=== PATIENT | male | born 1975 | race Caucasian/White ===

== ENCOUNTER 2020-11-08 10:42 | Emergency (ER) | payer MEDICAID ==
[2020-11-08] MEDS ORDERED: Ketorolac 10 MG Tab PO ONE (10:43)
[2020-11-08] MEDS ORDERED: Ketorolac 30 MG/ML SDV IM ONE (11:10)
--- NOTE | 2020-11-08 11:11 | EDM.PDOC ---
ED HPI GENERAL MEDICAL PROBLEM - General Chief Complaint: General Stated Complaint: BROKEN RIB Time Seen by Provider: 11/08/20 10:45 Source of Information: Reports: Patient History Limitations: Reports: No Limitations - History of Present Illness INITIAL COMMENTS - FREE TEXT/NARRATIVE: States he slipped ad fell in bathtub on monday and hurt his side Was seen in the ER on in sandra: noted to have 3 ribs fracture on the right with displacement on CT scan hurts to take a deep breath no shortness of breath noted . Was given medication but ran out and now states pain is worse right side rib Pain Score (Numeric/FACES): 9 - Related Data Allergies Allergy/AdvReac Type Severity Reaction Status Date / Time No Known Allergies Allergy Verified 11/08/20 10:53 Home Meds: Home Meds Acetaminophen/HYDROcodone [[place] 325-5 MG] 1 tab PO Q6H PRN #10 tab 11/08/20 [Rx] Ketorolac [Toradol] 10 mg PO Q6H PRN #15 tab 11/08/20 [Rx] Lidocaine [Lidoderm] 1 each TP DAILY #30 adh..patch 11/08/20 [Rx] ED ROS GENERAL - Review of Systems Review Of Systems: Comprehensive ROS is negative, except as noted in HPI. ED EXAM, GENERAL - Physical Exam Exam: See Below Exam Limited By: No Limitations General Appearance: Alert, WD/WN Eye Exam: Bilateral Eye: EOMI Ears: Normal External Exam Nose: Normal Inspection Throat/Mouth: Normal Inspection Head: Atraumatic, Normocephalic Neck: Non-Tender Respiratory/Chest: Lungs Clear, Normal Breath Sounds, Other (localized tenderness in the area of the lower ribs on the right). No: Crackles, Rales, Accessory Muscle Use Cardiovascular: Regular Rate, Rhythm GI/Abdominal: Soft, Non-Tender Back Exam: Full Range of Motion. No: CVA Tenderness (R), CVA Tenderness (L) Extremities: Normal Range of Motion Neurological: Alert, Oriented, CN II-XII Intact Psychiatric: Normal Affect Skin Exam: Warm, Dry, Intact Course - Vital Signs Last Recorded V/S: Last Vital Signs Temp 36.2 C 11/08/20 10:42 Pulse 130 H 11/08/20 10:42 Resp 17 11/08/20 10:42 BP 150/77 H 11/08/20 10:42 Pulse Ox 94 L 11/08/20 10:42 - Orders/Labs/Meds Orders: Active Orders 24 hr Category Date Time Status Ribs 2V w Chest Rt [CR] Stat Exams 11/08/20 11:07 Taken Meds: Medications Discontinued Medications Generic Name Dose Route Start Last Admin Trade Name Freq PRN Reason Stop Dose Admin Ketorolac Tromethamine 60 mg 11/08/20 11:10 11/08/20 11:32 Ketorolac 30 Mg/Ml Sdv IM 11/08/20 11:11 60 mg ONETIME ONE Administration - Re-Assessments/Exams Free Text/Narrative Re-Assessment/Exam: 11/08/20 12:59 pt was given a dose of toradol Then sent for Xray Radiologist luiz to get prior CT scan to compare the Xray with NO new fracture of displacement noted Departure - Departure Time of Disposition: 13:15 Disposition: Home, Self-Care 01 Condition: Fair Clinical Impression: Multiple fractures of ribs of right side, Contusion of rib on right side, Acute traumatic injury of chest wall - Discharge Information *PRESCRIPTION DRUG MONITORING PROGRAM REVIEWED*: Not Applicable *COPY OF PRESCRIPTION DRUG MONITORING REPORT IN PATIENT JENNA: Not Applicable Prescriptions: Lidocaine [Lidoderm] 1 each TP DAILY #30 adh..patch Acetaminophen/HYDROcodone [[place] 325-5 MG] 1 tab PO Q6H PRN #10 tab PRN Reason: Pain (Severe 7-10) Ketorolac [Toradol] 10 mg PO Q6H PRN #15 tab PRN Reason: Pain (Severe 7-10) Instructions: Rib Fracture, [id number], Blunt Chest Trauma, Rib Contusion Forms: ED Department Discharge Sepsis Event Note (ED) - Evaluation Sepsis Screening Result: No Definite Risk - Focused Exam Vital Signs: Vital Signs Temp Pulse Resp BP Pulse Ox 11/08/20 10:42 36.2 C 130 H 17 150/77 H 94 L - My Orders Last 24 Hours: My Active Orders 11/08/20 11:07 Ribs 2V w Chest Rt [CR] Stat - Assessment/Plan Last 24 Hours: My Active Orders 11/08/20 11:07 Ribs 2V w Chest Rt [CR] Stat
[2020-11-08] MEDS ORDERED: Lidocaine 4% 1 each Patch TOP PRN (12:55)
== END 2020-11-08 13:20 | disposition home or self-care (01) ==
LOC: FB.ED 10:42
DX: S22.41XA Multiple fractures of ribs, right side, initial encounter for closed fracture (principal); S20.211A Contusion of right front wall of thorax, initial encounter; W18.2XXA Fall in (into) shower or empty bathtub, initial encounter
CPT/HCPCS: 71101; 96372; 99283; A9270; J1885

== ENCOUNTER 2021-01-29 21:55 | Emergency (ER) | payer MEDICAID ==
--- NOTE | 2021-01-29 23:31 | EDM.PDOC ---
ED HPI GENERAL MEDICAL PROBLEM - General Stated Complaint: INTOXICATED/INJURY TO FACE Time Seen by Provider: 01/29/21 22:20 Source of Information: Reports: Patient, Family History Limitations: Reports: No Limitations - History of Present Illness INITIAL COMMENTS - FREE TEXT/NARRATIVE: c/o fall here with james, pt intoxicated, trinidade is not pt fell on sidewalk, has abrasion of R side of face, also dried blood on R side of face with EMS thinks is from nose, which appears to be the case XR of nose shows 2 fx's of nasal bone without displacement or depression, XR's shown to girlfriend the tip of the nose bends to the R, although this appears old as pt has had nasal fx's in past pt is a manager configuration at place of employment, 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 - Related Data Allergies Allergy/AdvReac Type Severity Reaction Status Date / Time No Known Allergies Allergy Verified 11/08/20 10:53 Home Meds: Home Meds Acetaminophen/HYDROcodone [[place] 325-5 MG] 1 tab PO Q6H PRN #10 tab 11/08/20 [Rx] Ketorolac [Toradol] 10 mg PO Q6H PRN #15 tab 11/08/20 [Rx] Lidocaine [Lidoderm] 1 each TP DAILY #30 adh..patch 11/08/20 [Rx] Past Medical History - Past Health History Medical/Surgical History: Denies Medical/Surgical History ED ROS GENERAL - Review of Systems Review Of Systems: See Below Constitutional: Reports: No Symptoms HEENT: Reports: Nose Pain Respiratory: Reports: No Symptoms Cardiovascular: Reports: No Symptoms Endocrine: Reports: No Symptoms GI/Abdominal: Reports: No Symptoms : Reports: No Symptoms Musculoskeletal: Reports: No Symptoms Skin: Reports: No Symptoms Neurological: Reports: No Symptoms Psychiatric: Reports: No Symptoms Hematologic/Lymphatic: Reports: No Symptoms Immunologic: Reports: No Symptoms ED EXAM, GENERAL - Physical Exam Exam: See Below Free Text/Narrative:: old blood on much of R side of face, 6 x 5 cm superficial abrasion of R supraorbital ridge, epidermis missing, no active bleeding similar 4 x 4 cm superficial abrasion of R zygomatic arch, no bony tenderness of the face except at nasal bone old RBC in R nares, L nares patent inner aspect of upper lip with 8 mm lac near midline from tooth, no other oral lacs, teeth not loose pt ambulates, answers questions Exam Limited By: No Limitations General Appearance: Alert, WD/WN, Other (alert, cooperative) Ears: Normal External Exam Throat/Mouth: Normal Teeth, Normal Voice, No Airway Compromise Head: Atraumatic, Normocephalic Respiratory/Chest: No Respiratory Distress, Lungs Clear Cardiovascular: Regular Rate, Rhythm, No Murmur Back Exam: Normal Inspection, Full Range of Motion Extremities: Normal Inspection, Normal Range of Motion, Non-Tender Neurological: Alert, Oriented, CN II-XII Intact, Normal Cognition, No Motor/Sensory Deficits Psychiatric: Normal Affect, Normal Mood Skin Exam: Warm, Dry Lymphatic: No Adenopathy Course - Orders/Labs/Meds Orders: Active Orders 24 hr Category Date Time Status Nasal Bone Min 3V [CR] Stat Exams 01/29/21 22:28 Ordered - Re-Assessments/Exams Free Text/Narrative Re-Assessment/Exam: 01/29/21 23:34 no clinical evidence of concussion althnadeen ramirez agrees to monitor him no injury except to face, mainly abrasion Departure - Departure Time of Disposition: 23:25 Disposition: Home, Self-Care 01 Condition: Good Clinical Impression: Nasal bone fracture, Minor head injury, Laceration of lip, Abrasion of forehead, Abrasion of cheek - Discharge Information *PRESCRIPTION DRUG MONITORING PROGRAM REVIEWED*: Not Applicable *COPY OF PRESCRIPTION DRUG MONITORING REPORT IN PATIENT JENNA: Not Applicable Instructions: Nasal Fracture, Head Injury, Adult, Mouth Laceration, Abrasion Additional Instructions: Have someone check on you every 4 hours for the next 24 hours, including waking you if you are asleep. Rest for 1-2 days. Use ice for 10 minutes every 2 hours as needed. Take ibuprofen 200 mg 3 tabs 4 times a day for 1-2 days. Return to Emergency Department if you are feeling worse. See ENT physician in 3-5 days if you are not satisfied with the cosmetic appearance of the nose in 3 days when the swelling is down. See your PCP in 3-4 days for further evaluation and recommendations. - My Orders Last 24 Hours: My Active Orders 01/29/21 22:28 Nasal Bone Min 3V [CR] Stat - Assessment/Plan Last 24 Hours: My Active Orders 01/29/21 22:28 Nasal Bone Min 3V [CR] Stat
--- NOTE | 2021-02-01 11:41 | CR ---
INDICATION: Intoxicated, fell on concrete. NASAL BONES: Four images of the nasal bones were obtained 01/29/21 - no comparisons. Four images of nasal bones showed evidence of a comminuted fracture of the left nasal bone with minimal medial offset of the fracture fragments - generally adequate position and alignment is suggested. Paranasal sinuses appeared fairly clear. IMPRESSION: Nasal bone fracture is comminuted, adequate position and alignment is suggested. MTDD
== END 2021-01-29 23:50 | disposition home or self-care (01) ==
LOC: FB.ED 21:55
DX: S02.2XXA Fracture of nasal bones, initial encounter for closed fracture (principal); S01.511A Laceration without foreign body of lip, initial encounter; W10.1XXA Fall (on)(from) sidewalk curb, initial encounter; Y92.480 Sidewalk as the place of occurrence of the external cause
CPT/HCPCS: 70160; 99284-25

== ENCOUNTER 2021-01-30 17:07 | Emergency (ER) | payer MEDICAID ==
[2021-01-30] MEDS ORDERED: Gabapentin 100 MG Cap PO ONE ×2 (17:08→17:47)
[2021-01-30] MEDS ORDERED: Acetaminophen 500 MG Tab PO ONE (17:47)
[2021-01-30] MEDS ORDERED: Cephalexin 500 MG Cap PO ONE (17:47)
--- NOTE | 2021-01-30 17:55 | EDM.PDOC ---
ED HPI GENERAL MEDICAL PROBLEM - General Chief Complaint: General Stated Complaint: BROKEN NOSE Time Seen by Provider: 01/30/21 17:30 Source of Information: Reports: Patient, Family History Limitations: Reports: No Limitations - History of Present Illness INITIAL COMMENTS - FREE TEXT/NARRATIVE: c/o pain pt seen in ED by myself yesterday for facial abrasions and nasal fx after fall has slight ZARCO now, no n/v, ate a muffin today took ibuprofen and still having pain having some weeping from abrasion next to R nares, has been using Triple Antbx Ointment Right Face/Facial Pain Score (Numeric/FACES): 8 - Related Data Allergies Allergy/AdvReac Type Severity Reaction Status Date / Time No Known Allergies Allergy Verified 11/08/20 10:53 Home Meds: Home Meds Acetaminophen/HYDROcodone [[place] 325-5 MG] 1 tab PO Q6H PRN #10 tab 11/08/20 [Rx] Ketorolac [Toradol] 10 mg PO Q6H PRN #15 tab 11/08/20 [Rx] Lidocaine [Lidoderm] 1 each TP DAILY #30 adh..patch 11/08/20 [Rx] Gabapentin [Neurontin] 100 mg PO QID #12 cap 01/30/21 [Rx] cephALEXin [Cephalexin] 500 mg PO TID #15 capsule 01/30/21 [Rx] Past Medical History - Past Health History Medical/Surgical History: Denies Medical/Surgical History HEENT History: Reports: Other (See Below) Other HEENT History: nasal fracture 01/29/21 Psychiatric History: Reports: Anxiety Social & Family History - Tobacco Use Tobacco Use Status *Q: Current Every Day Tobacco User Years of Tobacco use: 1 Packs/Tins Daily: 0.6 - Caffeine Use Caffeine Use: Reports: Soda - Recreational Drug Use Recreational Drug Use: No ED ROS GENERAL - Review of Systems Review Of Systems: See Below Constitutional: Reports: No Symptoms HEENT: Reports: Nose Pain Respiratory: Reports: No Symptoms Cardiovascular: Reports: No Symptoms Endocrine: Reports: No Symptoms GI/Abdominal: Reports: No Symptoms : Reports: No Symptoms Musculoskeletal: Reports: No Symptoms Skin: Reports: Wound, Other Neurological: Reports: No Symptoms Psychiatric: Reports: No Symptoms Hematologic/Lymphatic: Reports: No Symptoms Immunologic: Reports: No Symptoms ED EXAM, HEAD INJURY - Physical Exam Exam: See Below Exam Limited By: No Limitations General Appearance: Alert, WD/WN, No Apparent Distress Head: Other (abrasion ~4 x 6 cm over R supraorbital ridge and ~4 x 4 cm over R zygomatic arch are drying to touch with light brown coagulum, however abrasion ~1.5 x 1.5 adjacent to R ala of nose has moderate moist brown proteinaceous drainage suggesting possible early impetigo) Eyes: Bilateral Eye: EOMI Ears: Normal External Exam, Hearing Grossly Normal Nose: Other (nares again with R angulation of tip, mild swell and 1+ tender over bridge of nose, no nasal d/c) Throat/Mouth: Normal Inspection, Normal Voice, No Airway Compromise, Other (mild swell and ecchymosis of upper lip on mucosal surface in midline where tooth had broken surface, not thru and thru, healing well without infeciton) Neck: Non-Tender, Full Range of Motion, Normal Alignment, Normal Inspection Respiratory: No Respiratory Distress, Lungs Clear, Chest Non-Tender Cardiovascular: Regular Rate, Rhythm, No Edema, No Murmur GI/Abdominal Exam: Soft, Non-Tender Back Exam: Normal Inspection, Full Range of Motion Extremities: Normal Inspection, Normal Range of Motion Neurologic: No Motor/Sensory Deficits, Alert, Oriented x 3 Course - Vital Signs Last Recorded V/S: Last Vital Signs Temp 37.2 C 01/30/21 17:17 Pulse 102 H 01/30/21 17:17 Resp 18 01/30/21 17:17 BP 133/85 01/30/21 17:17 Pulse Ox 96 01/30/21 17:17 - Orders/Labs/Meds Orders: Active Orders 24 hr Category Date Time Status Gabapentin [Neurontin] Med 01/30/21 18:00 Ordered 100 mg PO Q6H Medication Orders Gabapentin (Gabapentin 100 Mg Cap) 100 mg PO Q6H NAVEEN Meds: Medications Generic Name Dose Route Start Last Admin Trade Name Freq PRN Reason Stop Dose Admin Gabapentin 100 mg 01/30/21 18:00 Gabapentin 100 Mg Cap PO Q6H NAVEEN Discontinued Medications Generic Name Dose Route Start Last Admin Trade Name Freq PRN Reason Stop Dose Admin Acetaminophen 1,000 mg 01/30/21 17:47 Acetaminophen 500 Mg Tab PO 01/30/21 17:48 ONETIME ONE Cephalexin 500 mg 01/30/21 17:47 Cephalexin 500 Mg Cap PO 01/30/21 17:48 ONETIME ONE Gabapentin 100 mg 01/30/21 17:47 Gabapentin 100 Mg Cap PO 01/30/21 17:48 ONETIME ONE - Re-Assessments/Exams Free Text/Narrative Re-Assessment/Exam: 01/30/21 18:08 overall doing well, pt concerned re pain management which was addressed Departure - Departure Time of Disposition: 17:50 Disposition: Home, Self-Care 01 Condition: Good Clinical Impression: Abrasion, face with infection, Nasal bone fracture - Discharge Information *PRESCRIPTION DRUG MONITORING PROGRAM REVIEWED*: Not Applicable *COPY OF PRESCRIPTION DRUG MONITORING REPORT IN PATIENT JENNA: Not Applicable Prescriptions: cephALEXin [Cephalexin] 500 mg PO TID #15 capsule Gabapentin [Neurontin] 100 mg PO QID #12 cap Instructions: Impetigo, Adult Referrals: PCP,None [Primary Care Provider] - Additional Instructions: For pain, take ibuprofen 200 mg 3 tabs and acetaminophen 325 mg 3 tabs and gabapentin 100 mg 1 capsule 4 times a day for 2-3 days. Continue ice for 10 minutes every 2 hours as needed. For possible infection (impetigo) of abrasion adjacent to right nares, take cephalexin 500 mg 1 tab 3 times a day for 5 days. See your doctor in 2-3 days for additional evaluation and recommendations. Call or return to Emergency Department in the meantime if you have additional questions or symptoms. Sepsis Event Note (ED) - Evaluation Sepsis Screening Result: No Definite Risk - Focused Exam Vital Signs: Vital Signs Temp Pulse Resp BP Pulse Ox 01/30/21 17:17 37.2 C 102 H 18 133/85 96 - My Orders Last 24 Hours: My Active Orders 01/30/21 18:00 Gabapentin [Neurontin] 100 mg PO Q6H - Assessment/Plan Last 24 Hours: My Active Orders 01/30/21 18:00 Gabapentin [Neurontin] 100 mg PO Q6H
[2021-01-30] MEDS ORDERED: Gabapentin 100 MG Cap PO SCH (18:00)
== END 2021-01-30 18:23 | disposition home or self-care (01) ==
LOC: FB.ED 17:07
DX: S02.2XXA Fracture of nasal bones, initial encounter for closed fracture (principal); L08.9 Local infection of the skin and subcutaneous tissue, unspecified; Z72.0 Tobacco use; Z79.899 Other long term (current) drug therapy; W18.39XA Other fall on same level, initial encounter
CPT/HCPCS: 99283; A9270